=== PATIENT | female | born 1950 | race Caucasian/White ===

== ENCOUNTER 2019-06-11 11:21 | Inpatient (IN) | payer MEDICARE, OTHER ==
[~2019-06-11] VITALS: Ht 157.5 cm; Wt 84.8 kg
[~2019-06-11 11:21] MED LIST: AMLO5TAB88; ASPI-1158; ATEN50TA; BENA40TA66; CITA10TA16; CLAR10; DOCU-138; METFORMIN PO; NORT10CA; SIMV20TA2; ZOLP10TA2
[2019-06-11] MEDS ORDERED: ONDANSETRON HCL 4MG/2ML INJ IV STA (11:29)
[2019-06-11] MEDS ORDERED: HYDRALAZINE 20MG/ML VIAL IV ONE ×2 (11:30→12:30)
[2019-06-11 11:39] LABS: BASOPHILS % 0.5 % (0.0-2.0); EOSINOPHILS % 0.6 % (0.0-5.0); HEMATOCRIT. 38.6 % (36.0-48.0); HEMOGLOBIN. 12.5 g/dL (12.0-16.0); LYMPHOCYTES % 33.7 % (20.0-50.0); MEAN CORPUSCULAR HEMOGLOBIN 25.9 pg (28.0-32.0); MEAN CORPUSCULAR VOLUME 79.9 fL (81.0-99.0); MEAN PLATELET VOLUME 9.6 fl (7.4-10.4); MONOCYTES % 6.6 % (2.0-8.0); NEUTROPHILS % 58.6 % (40.0-76.0); PLATELET 196 x1000/uL (130-400); RED BLOOD CELL COUNT 4.83 mill/uL (4.2-5.4); RED CELL DISTRIBUTION WIDTH 14.8 % (11.6-14.6)
[2019-06-11 11:42] LABS: CHLORIDE 103 mEq/L (98-107)
[2019-06-11 11:44] LABS: PARTIAL THROMBOPLASTIN TIME 30.9 sec (23.4-31.0); PROTHROMBIN TIME 10.2 sec (9.6-11.0)
[2019-06-11 11:46] LABS: ETHANOL BLOOD < 10 mg/dL
[2019-06-11 11:49] LABS: LDL CHOLESTEROL 91 mg/dL (5-100)
[2019-06-11 11:50] LABS: CREATINE KINASE 109 IU/L (26-192)
[2019-06-11] MEDS ORDERED: CLONIDINE 0.1MG TABLET PO ONE (14:00)
[2019-06-11 14:09] LABS: CLARITY URINE CLEAR (CLEAR); COLOR URINE YELLOW (YELLOW); KETONES URINE NEGATIVE (NEGATIVE); LEUKOCYTE ESTERASE URINE NEGATIVE (NEGATIVE); NITRITE URINE NEGATIVE (NEGATIVE); OCCULT BLOOD URINE NEGATIVE (NEGATIVE); PROTEIN URINE NEGATIVE (NEGATIVE); SPECIFIC GRAVITY URINE 1.004 (1.005-1.030); UROBILINOGEN URINE 0.2 E.U./dL (0.2-1.0)
[2019-06-11 14:30] LABS: *AMPHETAMINES SCREEN URINE NEGATIVE (NEGATIVE); *BARBITURATES SCREEN URINE NEGATIVE (NEGATIVE); *BENZODIAZEPINES SCREEN URINE NEGATIVE (NEGATIVE); *COCAINE SCREEN URINE NEGATIVE (NEGATIVE); METHADONE URINE SCREEN NEGATIVE (NEGATIVE); OPIATES URINE SCREEN NEGATIVE (NEGATIVE)
[2019-06-11] MEDS ORDERED: ONDANSETRON HCL 4MG/2ML INJ IV ONE (14:30)
[2019-06-11] MEDS ORDERED: MORPHINE SULFATE 4 MG/ML CPJ (NOT FOR IM USE) IV ONE (14:30)
[2019-06-11 14:31] LABS: CANNABINOID URINE SCREEN PRESUMTIVE POSITIVE (NEGATIVE); PHENCYCLIDINE URINE SCREEN NEGATIVE (NEGATIVE)
[2019-06-11] MEDS ORDERED: ONDANSETRON HCL 4MG/2ML INJ IV PRN (15:45)
[2019-06-11 20:00] VITALS: BP 161/77
[2019-06-11] MEDS: ATORVASTATIN CALCIUM 40MG TABLET PO SCH (21:15)
[2019-06-11] MEDS: AMLODIPINE 5MG TABLET PO SCH (21:15)
[2019-06-11] MEDS: ENOXAPARIN 40MG/0.4ML SYR SUBCUT SCH (21:16)
[2019-06-11] MEDS: ZOLPIDEM TARTRATE 5MG TABLET PO PRN (22:35)
[2019-06-11 23:01] VITALS: BP 161/77
[2019-06-12] VITALS (7 sets, daily range): BP systolic 129–161; BP diastolic 43–72
[2019-06-12] MEDS: CLONIDINE 0.1MG TABLET PO PRN ×2 (04:52→16:22)
[2019-06-12 07:12] LABS: BASOPHILS % 0.3 % (0.0-2.0); EOSINOPHILS % 0.4 % (0.0-5.0); HEMATOCRIT. 34.5 % (36.0-48.0); HEMOGLOBIN. 11.2 g/dL (12.0-16.0); LYMPHOCYTES % 19.8 % (20.0-50.0); MEAN CORPUSCULAR HEMOGLOBIN 25.7 pg (28.0-32.0); MEAN PLATELET VOLUME 10.6 fl (7.4-10.4); NEUTROPHILS % 71.5 % (40.0-76.0); PLATELET 199 x1000/uL (130-400); RED BLOOD CELL COUNT 4.37 mill/uL (4.2-5.4); RED CELL DISTRIBUTION WIDTH 14.8 % (11.6-14.6)
[2019-06-12 07:44] LABS: CHLORIDE 100 mEq/L (98-107)
[2019-06-12] MEDS ORDERED: POTASSIUM CHLORIDE 20MEQ TABLET SR PO NR (08:15)
[2019-06-12] MEDS: CLOPIDOGREL 75MG TABLET PO SCH (08:22)
[2019-06-12] MEDS: AMLODIPINE 5MG TABLET PO SCH ×2 (08:23→21:15)
[2019-06-12] MEDS: ACETAMINOPHEN 325MG TABLET PO PRN (12:46)
[2019-06-12] MEDS: PREGABALIN 25MG CAPSULE PO SCH (21:15)
[2019-06-12] MEDS: ZOLPIDEM TARTRATE 5MG TABLET PO PRN (21:15)
[2019-06-12] MEDS: ATORVASTATIN CALCIUM 40MG TABLET PO SCH (21:15)
[2019-06-12] MEDS: ENOXAPARIN 40MG/0.4ML SYR SUBCUT SCH (21:17)
[2019-06-13] VITALS: BP 143/51
[2019-06-13 08:15] VITALS: BP 122/56
[2019-06-13] MEDS: CLOPIDOGREL 75MG TABLET PO SCH (08:28)
[2019-06-13] MEDS: AMLODIPINE 5MG TABLET PO SCH (08:29)
[2019-06-13] MEDS: PREGABALIN 25MG CAPSULE PO SCH (08:29)
[2019-06-13 09:18] LABS: CHLORIDE 104 mEq/L (98-107)
[2019-06-13 09:55] LABS: BASOPHILS % 0.6 % (0.0-2.0); EOSINOPHILS % 0.9 % (0.0-5.0); HEMATOCRIT. 34.6 % (36.0-48.0); HEMOGLOBIN. 11.2 g/dL (12.0-16.0); LYMPHOCYTES % 27.8 % (20.0-50.0); MEAN CORPUSCULAR HEMOGLOBIN 25.9 pg (28.0-32.0); MEAN CORPUSCULAR VOLUME 79.9 fL (81.0-99.0); MEAN PLATELET VOLUME 10.5 fl (7.4-10.4); MONOCYTES % 9.7 % (2.0-8.0); PLATELET 177 x1000/uL (130-400); RED BLOOD CELL COUNT 4.33 mill/uL (4.2-5.4)
[2019-06-13 12:01] VITALS: BP 156/53
[2019-06-13 12:38] VITALS: BP 152/63
[2019-06-13] MEDS: ACETAMINOPHEN 325MG TABLET PO PRN (15:08)
[2019-06-13] MEDS: CLONIDINE 0.1MG TABLET PO PRN (15:08)
[2019-06-13 16:00] VITALS: BP 152/63
[2019-06-13] MEDS ORDERED: LYR25 PO (16:19)
== END 2019-06-13 17:05 | disposition home or self-care (01) | DRG 305 ==
LOC: ER 11:28 → EDBEDREQSVC 13:58 → EDBEDREQTM 13:58 → EDBEDREQ 13:58 → ENRESERV 19:08 → 7WST 20:33
PROVIDERS: ADMIT Internal Medicine; ATTEND Internal Medicine
DX: I16.1 Hypertensive emergency (principal); B02.29 Other postherpetic nervous system involvement; E11.9 Type 2 diabetes mellitus without complications; E66.01 Morbid (severe) obesity due to excess calories; E78.5 Hyperlipidemia, unspecified; F12.90 Cannabis use, unspecified, uncomplicated; J45.909 Unspecified asthma, uncomplicated; E78.00 Pure hypercholesterolemia, unspecified; I10 Essential (primary) hypertension; M48.02 Spinal stenosis, cervical region; M47.812 Spondylosis without myelopathy or radiculopathy, cervical region; G51.0 Bell's palsy; Z79.899 Other long term (current) drug therapy; Z79.82 Long term (current) use of aspirin; Z71.3 Dietary counseling and surveillance; Z86.19 Personal history of other infectious and parasitic diseases; Z68.34 Body mass index [BMI] 34.0-34.9, adult; Z86.73 Personal history of transient ischemic attack (TIA), and cerebral infarction without residual deficits
CPT/HCPCS: 36415; 70551; 71045; 72141; 80048; 80305; 80320; 81003; 82550; 82962; 83036; 83721; 83880; 84484; 86850; 86900; 92610; 93005; 97162; 97166; 99291; J0360; J1650; J2270; J2405; G0480

== ENCOUNTER → 2019-12-15 | Outpatient (CLI) | payer MEDICARE, OTHER ==
[~2019-12-15] MED LIST changes: +ASCO500T20 PO; +ASPI-1497 PO; +CIPR-213 MT; +FERR325T23 PO; +FLUC100T42 PO; +HYDR25TA PO; +LORA-249 PO; +LYR25 PO; +METF-414 PO; +NIAC-9 MT; +TRAM50TA3 PO
== END | disposition home or self-care (01) ==
LOC: LAB 10:12
PROVIDERS: ATTEND Neurological Surgery
DX: Z01.818 Encounter for other preprocedural examination (principal); Z11.59 Encounter for screening for other viral diseases
CPT/HCPCS: U0003-CS

== ENCOUNTER 2019-12-22 15:24 | Inpatient (IN) | payer MEDICARE, OTHER ==
[~2019-12-22] VITALS: Ht 157.5 cm; Wt 83.5 kg
[2019-12-22 15:24] VITALS: BP 168/66
[~2019-12-22 15:24] MED LIST changes: -ASCO500T20 PO; -CITA10TA16; -CLAR10; -DOCU-138; -FERR325T23 PO
[2019-12-22] MEDS ORDERED: ONDANSETRON HCL 4MG/2ML INJ IV PRN (16:00)
[2019-12-22] MEDS ORDERED: MORPHINE SULFATE 4 MG/ML CPJ (NOT FOR IM USE) IV PRN (16:00)
[2019-12-22] MEDS ORDERED: HYDRALAZINE 20 MG in SODIUM CHLORIDE 0.9% 49.5 ML IV PRN (16:00)
[2019-12-22] MEDS ORDERED: LORAZEPAM 0.5MG TABLET PO PRN (16:00)
[2019-12-22] MEDS: DOCUSATE SODIUM 100MG CAPSULE PO SCH (17:13)
[2019-12-22] MEDS: SODIUM CHLORIDE 0.9% 1,000 ML IV SCH (17:23)
[2019-12-22 20:00] VITALS: BP 169/45
[2019-12-22] MEDS ORDERED: POLYETHYLENE GLYCOL 3350 (17GM) 1 DOSE PACK PO SCH (21:00)
[2019-12-22] MEDS: ATORVASTATIN CALCIUM 20MG TABLET PO SCH (21:28)
[2019-12-22] MEDS: LACTULOSE 20G/30ML UDC PO SCH (21:30)
[2019-12-22] MEDS: HYDROCODONE/ACETAMINOPHEN 5/325MG TABLET PO PRN (21:30)
[2019-12-22] MEDS: NIACIN 500MG TABLET CR PO SCH (21:33)
[2019-12-22 23:53] LABS: CLARITY URINE CLEAR (CLEAR); COLOR URINE YELLOW (YELLOW); KETONES URINE NEGATIVE (NEGATIVE); LEUKOCYTE ESTERASE URINE 1+ (NEGATIVE); NITRITE URINE NEGATIVE (NEGATIVE); OCCULT BLOOD URINE NEGATIVE (NEGATIVE); PROTEIN URINE NEGATIVE (NEGATIVE); SPECIFIC GRAVITY URINE 1.013 (1.005-1.030)
[2019-12-23] MEDS: SODIUM CHLORIDE 0.9% 1,000 ML IV SCH (02:00)
[2019-12-23] MEDS: LACTULOSE 20G/30ML UDC PO SCH ×5 (04:00→11:18)
[2019-12-23 07:04] LABS: BASOPHILS % 0.5 % (0.0-2.0); EOSINOPHILS % 0.4 % (0.0-5.0); HEMATOCRIT. 32.8 % (36.0-48.0); HEMOGLOBIN. 10.9 g/dL (12.0-16.0); LYMPHOCYTES % 18.4 % (20.0-50.0); MEAN CORPUSCULAR HEMOGLOBIN 26.7 pg (28.0-32.0); MEAN CORPUSCULAR VOLUME 80.5 fL (81.0-99.0); MEAN PLATELET VOLUME 10.2 fl (7.4-10.4); MONOCYTES % 8.2 % (2.0-8.0); NEUTROPHILS % 72.5 % (40.0-76.0); PLATELET 227 x1000/uL (130-400); RED BLOOD CELL COUNT 4.07 mill/uL (4.2-5.4); RED CELL DISTRIBUTION WIDTH 14.8 % (11.6-14.6)
[2019-12-23] MEDS: HYDROCODONE/ACETAMINOPHEN 5/325MG TABLET PO PRN ×3 (07:08→21:07)
[2019-12-23 07:16] LABS: CHLORIDE 104 mEq/L (98-107)
[2019-12-23 07:26] LABS: FOLIC ACID (FOLATE) SERUM >20 ng/mL ng/mL (>5.38); PHOSPHORUS 4.3 mg/dL (2.5-4.9); TOTAL IRON BINDING CAPACITY 262 ug/dL (250-450)
[2019-12-23 07:38] LABS: VITAMIN B12 SERUM 1827 pg/mL (211-911)
[2019-12-23 08:00] VITALS: BP 127/62
[2019-12-23] MEDS: AMLODIPINE 5MG TABLET PO SCH (09:25)
[2019-12-23] MEDS: DOCUSATE SODIUM 100MG CAPSULE PO SCH ×2 (09:25→17:48)
[2019-12-23] MEDS: ATENOLOL 50 MG TABLET PO SCH (09:26)
[2019-12-23] MEDS: HYDROCHLOROTHIAZIDE 25MG TABLET PO SCH (09:26)
[2019-12-23] MEDS: LORAZEPAM 0.5MG TABLET PO SCH (09:27)
[2019-12-23] MEDS: METFORMIN HCL 500MG TABLET PO SCH (09:27)
[2019-12-23] MEDS: BENAZEPRIL 10MG TABLET PO SCH (09:28)
[2019-12-23] MEDS: CEFTRIAXONE 1 G PREMIX 50 ML IV SCH (11:21)
[2019-12-23] MEDS ORDERED: NA PHOS,M-B/NA PHOS,DI-BA ENEMA 118ML PR ONE (11:30)
[2019-12-23] MEDS ORDERED: NA PHOS,M-B/NA PHOS,DI-BA ENEMA 118ML PR NR (11:30)
[2019-12-23] MEDS ORDERED: BISACODYL 10MG SUPP PR PRN (12:30)
[2019-12-23] MEDS ORDERED: LACTULOSE 20G/30ML UDC PO SCH (13:00)
[2019-12-23] MEDS: FERROUS SULFATE 325MG TABLET PO SCH ×2 (13:34→17:48)
[2019-12-23 20:00] VITALS: BP 172/68
[2019-12-23] MEDS: POLYETHYLENE GLYCOL 3350 (17GM) 1 DOSE PACK PO SCH (20:46)
[2019-12-23] MEDS: ATORVASTATIN CALCIUM 20MG TABLET PO SCH (20:58)
[2019-12-23] MEDS: NIACIN 500MG TABLET CR PO SCH (20:58)
[2019-12-24 07:32] LABS: BASOPHILS % 0.4 % (0.0-2.0); EOSINOPHILS % 0.4 % (0.0-5.0); HEMATOCRIT. 31.5 % (36.0-48.0); HEMOGLOBIN. 10.4 g/dL (12.0-16.0); LYMPHOCYTES % 16.4 % (20.0-50.0); MEAN CORPUSCULAR HEMOGLOBIN 26.8 pg (28.0-32.0); MEAN CORPUSCULAR VOLUME 81.4 fL (81.0-99.0); MEAN PLATELET VOLUME 10.2 fl (7.4-10.4); MONOCYTES % 10.3 % (2.0-8.0); NEUTROPHILS % 72.5 % (40.0-76.0); PLATELET 201 x1000/uL (130-400); RED BLOOD CELL COUNT 3.87 mill/uL (4.2-5.4)
[2019-12-24 08:00] VITALS: BP 122/76
[2019-12-24] MEDS ORDERED: OXYCODONE HCL 5MG TABLET PO PRN (08:30)
[2019-12-24] MEDS: METFORMIN HCL 500MG TABLET PO SCH (08:55)
[2019-12-24] MEDS: HYDROCHLOROTHIAZIDE 25MG TABLET PO SCH (08:55)
[2019-12-24] MEDS: DOCUSATE SODIUM 100MG CAPSULE PO SCH ×2 (08:55→16:23)
[2019-12-24] MEDS: HYDROCODONE/ACETAMINOPHEN 5/325MG TABLET PO PRN (08:55)
[2019-12-24] MEDS: FERROUS SULFATE 325MG TABLET PO SCH ×3 (08:55→16:23)
[2019-12-24] MEDS: LORAZEPAM 0.5MG TABLET PO SCH (08:56)
[2019-12-24] MEDS: ATENOLOL 50 MG TABLET PO SCH (08:56)
[2019-12-24] MEDS: AMLODIPINE 5MG TABLET PO SCH (08:56)
[2019-12-24] MEDS: ASCORBIC ACID 500 MG TABLET PO SCH (08:57)
[2019-12-24] MEDS: BENAZEPRIL 10MG TABLET PO SCH (09:00)
[2019-12-24] MEDS: OXYCODONE HCL 5MG TABLET PO SCH ×3 (09:00→22:22)
[2019-12-24] MEDS: CEFTRIAXONE 1 G PREMIX 50 ML IV SCH (12:48)
[2019-12-24 20:00] VITALS: BP 150/48
[2019-12-24] MEDS: NIACIN 500MG TABLET CR PO SCH (22:19)
[2019-12-24] MEDS: POLYETHYLENE GLYCOL 3350 (17GM) 1 DOSE PACK PO SCH (22:19)
[2019-12-24] MEDS: ATORVASTATIN CALCIUM 20MG TABLET PO SCH (22:19)
[2019-12-25] MEDS: OXYCODONE HCL 5MG TABLET PO SCH ×3 (06:18→21:47)
[2019-12-25 07:05] LABS: BASOPHILS % 0.3 % (0.0-2.0); EOSINOPHILS % 0.5 % (0.0-5.0); HEMATOCRIT. 32.1 % (36.0-48.0); HEMOGLOBIN. 10.7 g/dL (12.0-16.0); LYMPHOCYTES % 19.4 % (20.0-50.0); MEAN CORPUSCULAR HEMOGLOBIN 27.1 pg (28.0-32.0); MEAN CORPUSCULAR VOLUME 81.1 fL (81.0-99.0); MONOCYTES % 10.8 % (2.0-8.0); PLATELET 211 x1000/uL (130-400); RED BLOOD CELL COUNT 3.96 mill/uL (4.2-5.4); RED CELL DISTRIBUTION WIDTH 14.2 % (11.6-14.6)
[2019-12-25 07:30] LABS: CHLORIDE 102 mEq/L (98-107)
[2019-12-25 08:00] VITALS: BP 162/33
[2019-12-25] MEDS: METFORMIN HCL 500MG TABLET PO SCH (08:04)
[2019-12-25] MEDS: ASCORBIC ACID 500 MG TABLET PO SCH (08:04)
[2019-12-25] MEDS: DOCUSATE SODIUM 100MG CAPSULE PO SCH ×2 (08:04→16:21)
[2019-12-25] MEDS: FERROUS SULFATE 325MG TABLET PO SCH ×3 (08:04→16:21)
[2019-12-25] MEDS: LORAZEPAM 0.5MG TABLET PO SCH (08:05)
[2019-12-25] MEDS: AMLODIPINE 5MG TABLET PO SCH (08:05)
[2019-12-25] MEDS: ATENOLOL 50 MG TABLET PO SCH (08:05)
[2019-12-25] MEDS: HYDROCHLOROTHIAZIDE 25MG TABLET PO SCH (08:05)
[2019-12-25] MEDS ORDERED: ACETAMINOPHEN 325MG TABLET PO PRN (09:00)
[2019-12-25] MEDS ORDERED: ACETAMINOPHEN 650MG/20.3ML UDC PO PRN (09:00)
[2019-12-25] MEDS: BENAZEPRIL 10MG TABLET PO SCH (09:00)
[2019-12-25] MEDS: CEFTRIAXONE 1 G PREMIX 50 ML IV SCH (11:21)
[2019-12-25 19:40] LABS: FERRITIN 58 ng/mL (10-291)
[2019-12-25 20:00] VITALS: BP 174/76
[2019-12-25 21:00] VITALS: BP 144/66
[2019-12-25] MEDS: NIACIN 500MG TABLET CR PO SCH (21:47)
[2019-12-25] MEDS: ATORVASTATIN CALCIUM 20MG TABLET PO SCH (21:47)
[2019-12-25] MEDS: POLYETHYLENE GLYCOL 3350 (17GM) 1 DOSE PACK PO SCH (21:47)
[2019-12-26] MEDS: HYDROCODONE/ACETAMINOPHEN 5/325MG TABLET PO PRN (03:33)
[2019-12-26] MEDS: OXYCODONE HCL 5MG TABLET PO SCH ×3 (06:14→22:53)
[2019-12-26 08:00] VITALS: BP 142/50
[2019-12-26] MEDS: BENAZEPRIL 10MG TABLET PO SCH (08:37)
[2019-12-26] MEDS: LORAZEPAM 0.5MG TABLET PO SCH (08:37)
[2019-12-26] MEDS: METFORMIN HCL 500MG TABLET PO SCH (08:37)
[2019-12-26] MEDS: ASCORBIC ACID 500 MG TABLET PO SCH (08:37)
[2019-12-26] MEDS: HYDROCHLOROTHIAZIDE 25MG TABLET PO SCH (08:37)
[2019-12-26] MEDS: AMLODIPINE 5MG TABLET PO SCH (08:38)
[2019-12-26] MEDS: ATENOLOL 50 MG TABLET PO SCH (08:38)
[2019-12-26] MEDS: FERROUS SULFATE 325MG TABLET PO SCH ×3 (09:25→16:05)
[2019-12-26] MEDS: DOCUSATE SODIUM 100MG CAPSULE PO SCH ×2 (09:25→16:05)
[2019-12-26] MEDS: CEFTRIAXONE 1 G PREMIX 50 ML IV SCH (11:26)
[2019-12-26] MEDS ORDERED: BISACODYL 10MG SUPP PR PRN (15:30)
[2019-12-26] MEDS: LACTULOSE 20G/30ML UDC PO SCH ×3 (16:05→22:55)
[2019-12-26 20:00] VITALS: BP 157/58
[2019-12-26] MEDS: ATORVASTATIN CALCIUM 20MG TABLET PO SCH (22:52)
[2019-12-26] MEDS: NIACIN 500MG TABLET CR PO SCH (22:52)
[2019-12-26] MEDS: POLYETHYLENE GLYCOL 3350 (17GM) 1 DOSE PACK PO SCH (22:53)
[2019-12-27 06:12] LABS: BASOPHILS % 0.3 % (0.0-2.0); EOSINOPHILS % 0.6 % (0.0-5.0); HEMATOCRIT. 30.1 % (36.0-48.0); HEMOGLOBIN. 10.2 g/dL (12.0-16.0); LYMPHOCYTES % 18.7 % (20.0-50.0); MEAN CORPUSCULAR HEMOGLOBIN 27.4 pg (28.0-32.0); MEAN PLATELET VOLUME 9.8 fl (7.4-10.4); MONOCYTES % 10.8 % (2.0-8.0); NEUTROPHILS % 69.6 % (40.0-76.0); PLATELET 249 x1000/uL (130-400); RED BLOOD CELL COUNT 3.71 mill/uL (4.2-5.4)
[2019-12-27] MEDS: OXYCODONE HCL 5MG TABLET PO SCH ×3 (06:17→22:05)
[2019-12-27 06:24] LABS: CHLORIDE 103 mEq/L (98-107)
[2019-12-27 08:00] VITALS: BP 134/48
[2019-12-27] MEDS: LACTULOSE 20G/30ML UDC PO SCH (08:01)
[2019-12-27] MEDS: METFORMIN HCL 500MG TABLET PO SCH (08:02)
[2019-12-27] MEDS: HYDROCHLOROTHIAZIDE 25MG TABLET PO SCH (08:02)
[2019-12-27] MEDS: LORAZEPAM 0.5MG TABLET PO SCH (08:02)
[2019-12-27] MEDS: DOCUSATE SODIUM 100MG CAPSULE PO SCH ×2 (08:02→16:19)
[2019-12-27] MEDS: BENAZEPRIL 10MG TABLET PO SCH (08:02)
[2019-12-27] MEDS: FERROUS SULFATE 325MG TABLET PO SCH ×3 (08:02→16:19)
[2019-12-27] MEDS: ATENOLOL 50 MG TABLET PO SCH (08:03)
[2019-12-27] MEDS: AMLODIPINE 5MG TABLET PO SCH (08:03)
[2019-12-27] MEDS: ASCORBIC ACID 500 MG TABLET PO SCH (08:03)
[2019-12-27 20:00] VITALS: BP 133/73
[2019-12-27] MEDS: POLYETHYLENE GLYCOL 3350 (17GM) 1 DOSE PACK PO SCH (21:00)
[2019-12-27] MEDS: NIACIN 500MG TABLET CR PO SCH (22:04)
[2019-12-27] MEDS: ATORVASTATIN CALCIUM 20MG TABLET PO SCH (22:04)
[2019-12-28] MEDS: OXYCODONE HCL 5MG TABLET PO SCH ×2 (06:25→13:13)
[2019-12-28 07:09] LABS: 25-HYDROXY VITAMIN D3 17 ng/mL (.)
[2019-12-28 08:01] VITALS: BP 122/51
[2019-12-28] MEDS: BENAZEPRIL 10MG TABLET PO SCH (09:00)
[2019-12-28] MEDS: METFORMIN HCL 500MG TABLET PO SCH (09:39)
[2019-12-28] MEDS: AMLODIPINE 5MG TABLET PO SCH (09:39)
[2019-12-28] MEDS: HYDROCHLOROTHIAZIDE 25MG TABLET PO SCH (09:39)
[2019-12-28] MEDS: LORAZEPAM 0.5MG TABLET PO SCH (09:40)
[2019-12-28] MEDS: ASCORBIC ACID 500 MG TABLET PO SCH (09:40)
[2019-12-28] MEDS: ATENOLOL 50 MG TABLET PO SCH (09:40)
[2019-12-28] MEDS: DOCUSATE SODIUM 100MG CAPSULE PO SCH ×2 (09:40→16:04)
[2019-12-28] MEDS: FERROUS SULFATE 325MG TABLET PO SCH ×3 (09:40→16:04)
[2019-12-28] MEDS ORDERED: ERGOCALCIFEROL 50000UNITS CAPSULE PO SCH (18:00)
[2019-12-28 20:00] VITALS: BP 137/62
[2019-12-28] MEDS: POLYETHYLENE GLYCOL 3350 (17GM) 1 DOSE PACK PO SCH (21:00)
[2019-12-28] MEDS: ATORVASTATIN CALCIUM 20MG TABLET PO SCH (21:20)
[2019-12-28] MEDS: NIACIN 500MG TABLET CR PO SCH (21:20)
[2019-12-28] MEDS: OXYCODONE HCL 5MG TABLET PO PRN (21:34)
[2019-12-29 08:00] VITALS: BP 170/76
[2019-12-29] MEDS: OXYCODONE HCL 5MG TABLET PO PRN (08:53)
[2019-12-29] MEDS: ATENOLOL 50 MG TABLET PO SCH (08:53)
[2019-12-29] MEDS: FERROUS SULFATE 325MG TABLET PO SCH (08:53)
[2019-12-29] MEDS: ASCORBIC ACID 500 MG TABLET PO SCH (08:53)
[2019-12-29] MEDS: HYDROCHLOROTHIAZIDE 25MG TABLET PO SCH (08:53)
[2019-12-29] MEDS: DOCUSATE SODIUM 100MG CAPSULE PO SCH (08:53)
[2019-12-29] MEDS: METFORMIN HCL 500MG TABLET PO SCH (08:53)
[2019-12-29] MEDS: AMLODIPINE 5MG TABLET PO SCH (08:53)
[2019-12-29] MEDS ORDERED: FERR325T23 PO (09:06)
[2019-12-29] MEDS ORDERED: ASCO500T20 PO (09:06)
[2019-12-29] MEDS: BENAZEPRIL 10MG TABLET PO SCH (09:10)
[2019-12-29 10:00] VITALS: BP 145/68
[2019-12-29 10:08] VITALS: BP 145/68
[2019-12-29] MEDS ORDERED: CLONIDINE 0.1MG TABLET PO PRN (10:45)
[2019-12-30] MEDS ORDERED: AMLODIPINE 10MG TABLET PO SCH (09:00)
== END 2019-12-29 11:34 | disposition home health service (06) | DRG 552 ==
PROVIDERS: ADMIT Physical Medicine & Rehabilitation Spinal Cord Injury Medicine; ATTEND Internal Medicine
DX: M48.061 Spinal stenosis, lumbar region without neurogenic claudication (principal); G82.20 Paraplegia, unspecified; M47.26 Other spondylosis with radiculopathy, lumbar region; M43.16 Spondylolisthesis, lumbar region; K59.00 Constipation, unspecified; J45.909 Unspecified asthma, uncomplicated; E11.9 Type 2 diabetes mellitus without complications; D64.9 Anemia, unspecified; D72.829 Elevated white blood cell count, unspecified; E78.5 Hyperlipidemia, unspecified; I10 Essential (primary) hypertension; F12.90 Cannabis use, unspecified, uncomplicated; F41.1 Generalized anxiety disorder; Z79.84 Long term (current) use of oral hypoglycemic drugs; Z86.19 Personal history of other infectious and parasitic diseases; Z90.49 Acquired absence of other specified parts of digestive tract; Z68.33 Body mass index [BMI] 33.0-33.9, adult
CPT/HCPCS: 36415; 71045; 80053; 81003; 82306; 82607; 82728; 82746; 82962; 83540; 83550; 83735; 84100; 84443; 85025; 92523; 92610; 93970; 97116; 97162; 97167; 97530; 97535; J0696; J2405

== ENCOUNTER 2020-02-05 21:16 | Emergency (ER) | payer MEDICARE, OTHER ==
[~2020-02-05] VITALS: Ht 162.6 cm; Wt 82.0 kg
[~2020-02-05 21:16] MED LIST changes: +ASCO500T20 PO; -ASPI-1497 PO; -CIPR-213 MT; +FERR325T23 PO; -FLUC100T42 PO; -METFORMIN PO
[2020-02-05] MEDS ORDERED: HYDRALAZINE 20MG/ML VIAL IV ONE (22:00)
[2020-02-05] MEDS ORDERED: ONDANSETRON HCL 4MG/2ML INJ IV ONE (22:45)
[2020-02-05 22:58] LABS: BASOPHILS % 0.4 % (0.0-2.0); EOSINOPHILS % 0.2 % (0.0-5.0); HEMATOCRIT. 39.3 % (36.0-48.0); HEMOGLOBIN. 12.8 g/dL (12.0-16.0); LYMPHOCYTES % 19.1 % (20.0-50.0); MEAN CORPUSCULAR HEMOGLOBIN 26.1 pg (28.0-32.0); MEAN CORPUSCULAR VOLUME 80.1 fL (81.0-99.0); MEAN PLATELET VOLUME 9.3 fl (7.4-10.4); MONOCYTES % 7.4 % (2.0-8.0); NEUTROPHILS % 72.9 % (40.0-76.0); PLATELET 242 x1000/uL (130-400); RED CELL DISTRIBUTION WIDTH 14.3 % (11.6-14.6)
[2020-02-05] MEDS ORDERED: NITROGLYCERIN 0.4MG TABLET SL SL PRN (23:00)
[2020-02-05 23:04] LABS: CHLORIDE 103 mEq/L (98-107)
[2020-02-05 23:09] LABS: PARTIAL THROMBOPLASTIN TIME 29.9 sec (23.4-31.0); PROTHROMBIN TIME 10.4 sec (9.6-11.0)
[2020-02-05] MEDS ORDERED: CLONIDINE 0.2MG TABLET PO ONE (23:30)
[2020-02-05] MEDS ORDERED: ASPIRIN 325MG EC TABLET PO ONE (23:30)
[2020-02-05] MEDS ORDERED: FUROSEMIDE 40MG/4ML VIAL IVP ONE (23:45)
[2020-02-05] MEDS ORDERED: CEFTRIAXONE 1 G PREMIX 50 ML IV ONE (23:45)
[2020-02-05] MEDS ORDERED: AZITHROMYCIN 500 MG in DEXT 5% WATER 250 ML IV ONE (23:45)
[2020-02-06] MEDS ORDERED: POTASSIUM CHLORIDE 20MEQ TABLET SR PO ONE (00:45)
[2020-02-06 04:19] VITALS: BP 149/67
== END 2020-02-06 04:37 | disposition short-term general hospital (02) ==
LOC: ER 21:16 → CANBEDREQ 02-06 00:45 → ER 02-06 04:37
DX: I11.0 Hypertensive heart disease with heart failure (principal); I50.9 Heart failure, unspecified; F41.9 Anxiety disorder, unspecified; E11.9 Type 2 diabetes mellitus without complications; Z79.899 Other long term (current) drug therapy; Z79.82 Long term (current) use of aspirin; R53.1 Weakness; R07.89 Other chest pain; R91.8 Other nonspecific abnormal finding of lung field
CPT/HCPCS: 36415; 70450; 71045; 80053; 83605; 83880; 84484; 85025; 85610; 85730; 87040; 87635; 93005; 96365; 96366; 96368; 96375; 99285; C9803; J0360; J0456; J0696; J1940; J2405; J7060